=== PATIENT | male | born 1970 | race Caucasian/White ===

== ENCOUNTER 2016-12-04 04:00 | Inpatient (IN) | payer OTHER ==
--- NOTE | ~2016-12-04 | PN ---
Unit #: [id number] #: [id number] Patient: LAWRENCE MICHELLE [id number] [facility] [address] [place] [address] [id number] I MR#: [id number] NAME: LAWRENCE MICHELLE. ROOM: 63 Age: 46 Sex: M Admission Date: 12/04/2016 : 1970 Attending Physician: Keven Pereira M.D. Admitting Physician: Keven Pereira M.D. Primary Care Physician: Primary Care Physician Abi NEGRON NOTES DATE 12/07/2016 DISCUSSION Mr. Michelle is a 46-year-old white male who was seen today and chart was reviewed and case was discussed with the staff. He remains anxious, withdrawn, depressed and rather seclusive to himself. Meanwhile, he has been cooperative with treatment recommendations and has been taking medications and tolerating them fairly well with no reported side effects. MENTAL STATUS EXAMINATION Middle-aged white male who was casually dressed with fair personal hygiene and appears to be in no acute distress or discomfort. He was awake and alert on interaction with intact orientation. His mood was anxious with congruent affect. He denies any suicidal or homicidal ideation. His insight and judgement remains slightly impaired. TREATMENT PLAN 1. Will continue on his current medications and treatment protocol. Will monitor his response to the medications and make further adjustments as needed. 2. Will continue to follow up. Dictated by... Keven Pereira M.D. IAA/taz TD: 12/07/2016 17:23 JOB #: [id number] Unit #: [id number] #: [id number] Patient: LAWRENCE MICHELLE ISIDRO PROGRESS NOTES Page 1 of 1 X Keven Pereira MD PROGRESS NOTE
--- NOTE | ~2016-12-04 | HP ---
Unit #: [id number] #: [id number] Patient: LAWRENCE LOPEZ [id number] [place] [address] [id number] I MR#: [id number] NAME: LAWRENCE LOPEZ. ROOM: 63 Age: 46 Sex: M Admission Date: 12/04/2016 : 1970 Attending Physician: Keven Pereira M.D. Admitting Physician: Keven Pereira M.D. Primary Care Physician: Primary Care Physician No HISTORY AND PHYSICAL HISTORY OF PRESENT ILLNESS Lawrence is a 46 year old, admitted to [address] [place] [address], because of his polysubstance abuse which includes methamphetamine and heroin. PAST MEDICAL HISTORY 1. Long history of poly-illicit substance abuse to include snorting heroin and methamphetamine. 2. Morbid obesity. 3. Diabetes mellitus. 4. History of congestive heart failure. 5. High blood pressure. 6. History of DVT. PAST SURGICAL HISTORY I and D of an abscess. ALLERGIES No known drug allergies. SOCIAL HISTORY He smokes less than one pack per day. He drinks alcohol rarely and admits to a history of illicit substance abuse to include snorting methamphetamine and heroin. He denies any IV drugs. FAMILY HISTORY Medically noncontributory. REVIEW OF SYSTEMS CONSTITUTIONAL: No fever or chills. HEENT: Denies any sore throat, ear pain or runny nose. CARDIOVASCULAR: Denies chest pain, irregular heart rhythm or palpitations. CHEST: Denies shortness of breath or cough. No hemoptysis. GASTROINTESTINAL: Denies nausea, vomiting, diarrhea or chronic constipation. ENDOCRINE: Denies history of increased thirst or urination. No recent significant weight loss or gain. GENITOURINARY: Denies dysuria, frequency, or hematuria. SKIN: Denies any rashes. HEMATOLOGIC: Denies history of increased bleeding or bruising. MUSCULOSKELETAL: Denies any hot, swollen joints. No generalized muscle pain. NEUROLOGIC: Denies problems with vision or speech. No frequent, severe headaches. No numbness, tingling or weakness in any extremities. Denies Unit #: [id number] #: [id number] Patient: LAWRENCE LOPEZ loss of bladder or bowel control. CURRENT MEDICATIONS 1. Detox protocol 2. NovoLog per sliding scale 3. Xarelto 20 mg daily 4. Zestril 40 mg daily 5. Celexa 20 mg daily 6. Nicotine patch 14 mg daily PHYSICAL EXAMINATION GENERAL: Alert, obese, no apparent distress. VITAL SIGNS: Blood pressure 182/116, heart rate 100, respirations 16, and temperature 98.6. WEIGHT: 275 pounds. HEIGHT: 6 feet 0 inches. SKIN: Warm and dry without rash or lesion. HEENT: Normocephalic. TMs not viewed. Oral and nasal passages clear. Conjunctivae clear. PERRLA. EOMs intact. NECK: Supple without lymphadenopathy or thyromegaly. HEART: Regular rate and rhythm without murmur. LUNGS: Clear. ABDOMEN: Soft, nontender. : Not done. EXTREMITIES: No evidence of cyanosis or clubbing. He has trace to 1+ edema bilateral lower extremities. Moves all without focal deficit. NEUROLOGICAL: Grossly within normal limits. Cranial Nerves: II: Visual kaur are intact. III, IV AND : Extraocular movements are intact. Pupils are equal, round and reactive to light. V: Facial sensation is grossly normal. VII: Facial movements and expression are normal. VIII: Auditory acuity grossly intact. IX, X: Uvula is midline. Phonation is normal. XI: Patient shrugs shoulders and turns head normally. XII: Tongue protrudes in the midline. Sensory and Motor Function: Sensory and motor sensation is grossly normal. Motor: moves all extremities well. Coordination: Gait is normal. Deep Tendon Reflexes: Intact. IMPRESSION Psychiatric admission. RECOMMENDATIONS Psychiatric, per psychiatrist. MEDICAL 1. I see no contraindications to participating in facility's activities. 2. Detox per protocol. 3. Continue Xarelto and Zestril. Add Relafen 500 mg one p.o. b.i.d. for pain MEDICAL PROGNOSIS Good. MEDICAL CONDITION Stable. Dictated by... Unit #: [id number] #: [id number] Patient: LAWRENCE LOPEZ Len Hdz P.A.-C. for Adryan Tay/sugar TD: 12/04/2016 15:07 JOB #: [id number] HISTORY AND PHYSICAL Page 1 of 1 X Amita Hdz X HISTORY AND PHYSICAL
--- NOTE | ~2016-12-04 | CR63 ---
[facility] A Service of [facility] RADIOLOGY TEXT RESULTS PATIENT: LAWRENCE LOPEZ LOCATION: P2L P263-2 : [birth year] UNIT #: [id number] AGE: [address]: Keven Pereira MD SEX: M ORDER DR: [id number] [facility] [address] [facility]. [place], [place] [address] [id number] I MR#: [id number] Acc #: [id number] NAME: LAWRENCE LOPEZ : 1970 SEX: M STUDY DATE/TIME: 12/06/2016 19:06 UNIT: P2 ROOM: [facility] STUDY DESCRIPTION: CR Chest 2 View Attending Physician: Keven Pereira M.D. Ordering Physician: Amita Hdz P.A.-C. Primary Care Physician: No Primary Care Physician MEDICAL IMAGING REPORT This report is preliminary unless electronic signature is present EXAM PA and lateral chest. HISTORY Shortness of air for 3 weeks. FINDINGS Two views of the chest demonstrate mild cardiac enlargement and vascular congestion and mild bilateral perihilar edema or atelectasis. Additional mild interstitial infiltrate or atelectasis or edema in the right mid and lower lung. Small calcified right hilar nodes and calcified granuloma right midlung. IMPRESSION Cardiac enlargement with mild vascular congestion and mild bilateral perihilar infiltrates or edema. Consider mild congestive heart failure. Additional mild interstitial infiltrates right mid and lower lung. No pleural effusions. Dictated by... Roland Martinez M.D. THIS IS AN ELECTRONICALLY VERIFIED REPORT Roland Martinez M.D. at 12/07/2016 11:23 PM AKI/imelda TD: 12/06/2016 22:40 JOB #: [id number] MEDICAL IMAGING REPORT Page 1 of 1 COPY
--- NOTE | ~2016-12-04 | PN ---
Unit #: [id number] #: [id number] Patient: LAWRENCE MICHELLE [id number] [facility] [address] [place] [address] [id number] I MR#: [id number] NAME: LAWRENCE MICHELLE. ROOM: [facility] Age: 46 Sex: M Admission Date: 12/04/2016 : 1970 Attending Physician: Keven Pereira M.D. Admitting Physician: Keven Pereira M.D. Primary Care Physician: Primary Care Physician Abi NEGRON NOTES DATE 12/06/2016 DISCUSSION Mr. Michelle is a 46-year-old white male with mood disorder and substance abuse who was seen today and chart was reviewed and case was discussed with the staff. He reports not feeling good and has been not showing much improvement in his mood and functioning and has been anxious, withdrawn, unkempt, disheveled and seclusive to himself and describes himself to be in distress and discomfort and significant dysphoric mood with feelings of hopelessness and helplessness but has not shown any agitation or aggression. He has been taking medications and tolerating them fairly well with no reported side effects. MENTAL STATUS EXAMINATION Middle-aged white male who was casually dressed with fair personal hygiene and appears to be in no acute distress or discomfort. He was awake and alert with impaired attention and concentration. His mood was anxious with congruent affect. His speech is slow and tangential. His thought processes were disorganized with some looseness of associations and flight of ideas. His insight and judgement remains significantly impaired. TREATMENT PLAN 1. Will continue on his current medications and treatment protocol. Will monitor his response to medications and make further adjustments as needed. 2. Will continue to follow up. Dictated by... Adryan Johnson/taz TD: 12/06/2016 16:52 JOB #: [id number] Unit #: [id number] #: [id number] Patient: LAWRENCE MICHELLE ISIDRO PROGRESS NOTES Page 1 of 1 X Keven Pereira MD X PROGRESS NOTE
--- NOTE | ~2016-12-04 | PN ---
Unit #: [id number] #: [id number] Patient: LAWRENCE LOPEZ [id number] [facility] [address] [place] [address] [id number] I MR#: [id number] NAME: LAWRENCE LOPEZ. ROOM: [facility] Age: 46 Sex: M Admission Date: 12/04/2016 : 1970 Attending Physician: Keven Pereira M.D. Admitting Physician: Keven Pereira M.D. Primary Care Physician: Primary Care Physician Abi FELIX PROGRESS NOTES DATE 12/08/2016 DISCUSSION Mr. Catalan is a 46-year-old, white male who was seen today and chart was reviewed and case was discussed with the staff. He has been anxious, withdrawn though has not shown any agitation, irritability and has been cooperative with treatment recommendations. He has been taking the medication and tolerating them fairly well with no reported side effects. MENTAL STATUS EXAM Middle-aged white male who was casually dressed with fair personal hygiene, appears to be in no acute distress or discomfort. He was awake and alert with intact orientation. His mood was anxious with congruent affect. He denies any suicidal or homicidal ideation. His insight and judgement remains slightly impaired. TREATMENT PLAN 1. We will continue him on his current treatment protocol. We will monitor his response to the medication and make further adjustments as needed. We will request medical consultation as the patient has been complaining of (1) . 2. We will continue to follow up. Dictated by... Adryan Johnson/lolly TD: 12/09/2016 03:47 JOB #: [id number] Unit #: [id number] #: [id number] Patient: LAWRENCE LOPEZ ISIDRO PROGRESS NOTES Page 1 of 1 X Keven Pereira MD PROGRESS NOTE
--- NOTE | ~2016-12-04 | PA ---
Unit #: [id number] #: [id number] Patient: LAWRENCE MICHELLE [id number] [facility] [address] [place] [address] [id number] I MR#: [id number] NAME: LAWRENCE MICHELLE ROOM: P263 Age: 46 Sex: M Admission Date: 12/04/2016 : 1970 Date of Assessment: 12/04/2016 Attending Physician: Keven Pereira M.D. Admitting Physician: Keven Pereira M.D. Primary Care Physician: Primary Care Physician No PSYCHIATRIC ASSESSMENT DATE OF SERVICE 12/04/2016. IDENTIFYING DATA Mr. Michelle is a 46-year-old single white male, who is a resident of [place], [place], and is known to us from previous encounter, was self-referred to the hospital on a voluntary basis. CHIEF COMPLAINT "I met the crucial point." HISTORY OF PRESENT ILLNESS Mr. Mihcelle is a 46-year-old white male with history of mood disorder and substance abuse, who was brought to the hospital, stating that he has been on suicidal ideations with plan to jump off the building and is putting headphones on and walking off the ledge and reports history of suicidal ideation for approximately 1 year, reports daily use of heroin and methamphetamine with last use of both substances in 12/02/2016 and does report increasing depression, anxiety, irritability, feelings of hopelessness and helplessness, and suicidal ideations with intent and plan and as such, recommendation for inpatient level of care for safety and stabilization was made. The patient was transferred to us. SUBSTANCE ABUSE HISTORY The patient reports history of opioid and methamphetamine abuse and reports that he has been using 0.5 to 1 g of heroin a day and reports both of them to be his drug of choice. PAST PSYCHIATRIC HISTORY The patient has a history of multiple inpatient psychiatric and chemical dependency treatments including being at the [facility], [facility], [facility], and review of the medical records indicate that currently he is not active in treatment program, is not seeing a psychiatrist, not taking any psychotropic medications. PAST MEDICAL HISTORY The patient's medical history is significant for diabetes mellitus, congestive heart failure, hypertension. ALLERGIES No known medication allergies. PERSONAL AND SOCIAL HISTORY Unit #: [id number] #: [id number] Patient: LAWRENCE MICHELLE A 46-year-old white male, who reports that he is single, unemployed, and lives by himself and has poor social support system. MENTAL STATUS EXAMINATION Middle-aged white male, who was casually dressed with fair personal hygiene, appears to be in no acute distress or discomfort. He was awake and alert on interaction with intact orientation to time, place, and person. His mood was anxious and depressed with a congruent affect. His speech was slow and restricted in content. His thought processes were disorganized with some looseness of associations and suicidal ideations. His insight and judgment remain significantly impaired. DIAGNOSTIC IMPRESSION Psychiatric: Major depressive disorder, recurrent, moderate, without psychotic features; opioid dependence, moderate and acute withdrawals; methamphetamine dependence, moderate. Medical: Hypertension, congestive heart failure, diabetes mellitus. Stressors: Moderate psychosocial stressors. TREATMENT PLAN 1. The patient has presented with history of mood disorder and substance abuse and has been decompensating and will need inpatient hospitalization for safety and stabilization. We will start him back on his home medications. We will adjust the medications and monitor response. 2. Supportive therapy was provided to the patient. 3. Safe, structured, and nourishing environment will be provided. ESTIMATED LENGTH OF STAY 5 to 7 days. ABILITY TO HELP SELF Limited. WILLINGNESS TO HELP SELF The patient appears to be willing to help self. STRENGTHS 1. Communicative. 2. Cooperative. PROBLEMS 1. Chronic dysphoric symptoms. 2. Poor social support system. DISCHARGE CRITERIA This will be contingent upon the patient's ability to show resolution of his depression and anxiety and his ability to stay safe to himself, particularly after discharge from the hospital. Dictated by... Adryan Johnson/singh TD: 12/04/2016 12:42 JOB #: [id number] Unit #: [id number] #: [id number] Patient: LAWRENCE MICHELLE PSYCHIATRIC ASSESSMENT Page 1 of 1 X Keven Pereira MD PSYCHIATRIC ASSESSMENT
--- NOTE | ~2016-12-04 | PN ---
Unit #: [id number] #: [id number] Patient: LAWRENCE MICHELLE [id number] [facility] [address] [place] [address] [id number] MR#: [id number] NAME: LAWRENCE MICHELLE. ROOM: [facility] Age: 46 Sex: M Admission Date: 12/04/2016 : 1970 Attending Physician: Keven Pereira M.D. Admitting Physician: Keven Pereira M.D. Primary Care Physician: Primary Care Physician Abi FELIX PROGRESS NOTES DATE OF SERVICE 12/09/2016 DISCUSSION Mr. Michelle is a 46-year-old white male who was seen today. Chart was reviewed and case was discussed with the staff. He has been anxious, withdrawn, and rather seclusive to himself. Meanwhile, he has been cooperative with the treatment recommendations and has been showing some improvement in his depressive symptoms. MENTAL STATUS EXAMINATION Middle-aged white male who is casually dressed with fair personal hygiene and appears to be in no acute distress or discomfort. The patient was awake and alert on interaction with intact orientation. His mood is anxious and depressed with congruent affect. Speech is slow and goal-directed. He denies any suicidal or homicidal ideations. His insight and judgment remain slightly impaired. TREATMENT PLAN 1. We will continue him on his current treatment protocol. We will monitor his response to the medications and make further adjustments as needed. 2. We will continue to follow up. Dictated by... Keven Pereira M.D. IAA/bzg TD: 12/10/2016 11:46 JOB #: [id number] Unit #: [id number] #: [id number] Patient: LAWRENCE MICHELLE PROGRESS NOTES Page 1 of 1 X Keven Pereira MD PROGRESS NOTE
--- NOTE | ~2016-12-04 | CO ---
Unit #: [id number] #: [id number] Patient: LAWRENCE LOPEZ [id number] [place] [address] [id number] I MR#: [id number] NAME: LAWRENCE LOPEZ. ROOM: [facility] Age: 46 Sex: M Admission Date: 12/04/2016 : 1970 Attending Physician: Keven Pereira M.D. Primary Care Physician: Primary Care Physician No Consultation Date: 12/06/2016 CONSULTATION REPORT SUBJECTIVE Lawrence is a 46-year-old with history of COPD. He has complained of some shortness of air and pulse ox have been running 89 to 92. We have been asked to assess and treat. He denies any chest pain, irregular heart beats, or increased edema in his lower extremities. OBJECTIVE GENERAL: Alert, morbidly obese, no apparent distress. VITAL SIGNS: Blood pressure 150/82, heart rate 80, respirations 16, temperature 98.6. CARDIOVASCULAR: Rate and rhythm is regular. No S3. CHEST: Decreased breath sounds, but clear. ABDOMEN: Morbidly obese, soft, nontender. EXTREMITIES: Trace edema bilaterally, lower extremities. ASSESSMENT Chronic obstructive pulmonary disease. PLAN Albuterol mini-nebs q.4 hours while awake. Nursing staff is to let us know if anything else develops. Dictated by... Amita Hdz P.A.-C. for Adryan Tay/singh TD: 12/12/2016 01:24 JOB #: [id number] CONSULTATION REPORT Page 1 of 1 X Amita Hdz X CONSULTATION REPORT
--- NOTE | ~2016-12-04 | PN ---
Unit #: [id number] #: [id number] Patient: LAWRENCE MICHELLE [id number] [facility] [address] [place] [address] [id number] I MR#: [id number] NAME: LAWRENCE MICHELLE. ROOM: [facility] Age: 46 Sex: M Admission Date: 12/04/2016 : 1970 Attending Physician: Keven Pereira M.D. Admitting Physician: Keven Pereira M.D. Primary Care Physician: Primary Care Physician Abi NEGRON NOTES DATE 12/05/2016 DISCUSSION Mr. Michelle is a 46-year-old white male who was seen today and chart was reviewed and case was discussed with the staff. He has been anxious, withdrawn and seclusive to himself and does appear to be in distress and discomfort complaining of increasing anxiety and difficulty breathing and thus p.r.n. inhaler was given. Meanwhile, he has been taking medications and tolerating them fairly well with no reported side effects. MENTAL STATUS EXAMINATION Middle-aged white male who was casually dressed with fair personal hygiene and appears to be in no acute distress or discomfort. He was awake and alert with intact orientation. His mood was anxious with congruent affect. He denies any suicidal or homicidal ideation. His insight and judgement remains slightly impaired. TREATMENT PLAN 1. Will continue on his current medications and treatment protocol and will monitor his response to medications and make further adjustments as needed. 2. Will continue to follow up. Dictated by... Adryan Johnson/taz TD: 12/05/2016 21:18 JOB #: [id number] Unit #: [id number] #: [id number] Patient: LAWRENCE MICHELLE ISIDRO PROGRESS NOTES Page 1 of 1 X Keven Pereira MD PROGRESS NOTE
--- NOTE | ~2016-12-04 | DS ---
Unit #: [id number] #: [id number] [facility] [id number] [facility] [address] [place] [address] [id number] I MR#: [id number] NAME: LAWRENCE MICHELLE ROOM: [facility] Age: 46 Sex: M Admission Date: 12/04/2016 : 1970 Discharge Date: 12/11/2016 Attending Physician: Keven Pereira M.D. Primary Care Physician: Primary Care Physician No DISCHARGE SUMMARY IDENTIFYING DATA Mr. Michelle is a 46-year-old single white male, who is a resident of [place], [place], and is known to us from previous encounter, was self-referred to the hospital. DISCHARGE DIAGNOSES Psychiatric: Major depressive disorder, recurrent, moderate, without psychotic features; opioid dependence, moderate and acute withdrawals; methamphetamine dependence, moderate. Medical: Hypertension, congestive heart failure, diabetes mellitus. Stressors: Moderate psychosocial stressors. HISTORY OF PRESENT ILLNESS Please see initial psychiatric evaluation for details. PAST PSYCHIATRIC HISTORY Please see initial psychiatric evaluation for details. PAST MEDICAL HISTORY Please see initial psychiatric evaluation for details. HOSPITAL COURSE The patient was admitted to the adult psychiatric unit at [facility] and was oriented to the hospital environment. Routine p.r.n. medications were initiated, and he was started back on his home medications and medications were adjusted as the patient was exhibiting significant anxiety and depression and was also having some medical complications particularly with breathing and medical consultation was requested as well. He was taking the medications regularly and was tolerating them fairly well and was able to show a decent and therapeutic response with improvement in depression and anxiety and was willing to continue treatment on an outpatient basis and as such, it was decided that he will be discharged home and will continue treatment on an outpatient basis. DISCHARGE MEDICATIONS Celexa 20 mg a day for depression, Zestril 40 mg a day for hypertension, Lasix 40 mg a day for hypertension, Proventil inhaler 2 puffs as needed for asthma. DISCHARGE CONDITION Stable. PROGNOSIS Unit #: [id number] #: [id number] Patient: LAWRENCE MICHELLE Fair. Dictated by... Adryan Johnson/singh TD: 12/12/2016 00:29 JOB #: [id number] DISCHARGE SUMMARY Page 1 of 1 X Keven Pereira MD DISCHARGE SUMMARY
--- NOTE | ~2016-12-04 | PN ---
Unit #: [id number] #: [id number] Patient: LAWRENCE MICHELLE [id number] [facility] [address] [place] [address] [id number] I MR#: [id number] NAME: LAWRENCE MICHELLE. ROOM: [facility] Age: 46 Sex: M Admission Date: 12/04/2016 : 1970 Attending Physician: Keven Pereira M.D. Admitting Physician: Keven Pereira M.D. Primary Care Physician: Primary Care Physician Abi FELIX PROGRESS NOTES DATE 12/10/2016 DISCUSSION Mr. Michelle is a 46-year-old, white male who was seen today and chart was reviewed and case was discussed with the staff. He has been anxious, withdrawn though has not shown any agitation, irritability and has been rather calm and cooperative with the treatment recommendations. He has been taking the medication and tolerating them fairly well with no reported side effects. MENTAL STATUS EXAM Middle-aged white male who was casually dressed with fair personal hygiene, appears to be in no acute distress or discomfort. He was awake and alert on interaction with intact orientation. His mood was anxious with congruent affect. He denies any suicidal or homicidal ideation. His insight and judgement remains slightly impaired. TREATMENT PLAN 1. We will continue him on his current medications and treatment protocol. We will monitor his response to the medication and make further adjustments as needed. 2. We will continue to follow up. Dictated by... Adryan Johnson/lolly TD: 12/11/2016 04:57 JOB #: [id number] Unit #: [id number] #: [id number] Patient: LAWRENCE MICHELLE ISIDRO PROGRESS NOTES Page 1 of 1 X Keven Pereira MD PROGRESS NOTE
[2016-12-05 09:52] LABS: BASOPHIL% 0.2 % (0-2.5); EOSINOPHIL# 0.2 X10e3 (0-0.7); EOSINOPHIL% 1.5 % (0.0-7.0); HEMATOCRIT 40.8 % (38.0-50.0); HEMOGLOBIN 13.3 gm/dL (13.0-16.0); LYMPHOCYTE# 2.4 X10e3 (1.0-3.5); LYMPHOCYTE% 18.9 % (17.0-45.0); MEAN CELL VOLUME 82.9 FL (83-96); MEAN CORPUSCULAR HGB CONC 32.5 g/dL (30-36); MEAN PLATELET VOLUME 8.8 FL (6.5-11.5); MONOCYTE# 0.8 X10e3 (0-1.0); MONOCYTE% 6.1 % (3.0-12.0); NEUTROPHIL# 9.3 X10e3 (1.5-7.1); NEUTROPHIL% 73.3 % (40-75); PLATELET COUNT 277 X10e3 (140-420); RED BLOOD COUNT 4.92 X10e (3.90-5.60); RED CELL DISTRIBUTION WIDTH 15.6 % (11.0-15.5); WHITE BLOOD COUNT 12.7 X10e3 (4.0-10.5)
[2016-12-05 09:55] LABS: DIFF IND NO
[2016-12-05 10:02] LABS: ALBUMIN SERUM 2.9 g/dL (3.5-5.0); BILIRUBIN,TOTAL 0.5 mg/dL (0.2-2.0); BUN/CREATININE RATIO 13.33; CALCIUM SERUM 8.3 mg/dL (8.4-10.2); CREATININE SERUM 0.9 mg/dL (0.6-1.4); GLOM FILT RATE Estimated 101.4 mL/min (>60); PROTEIN TOTAL SERUM 6.2 g/dL (6.0-8.3)
[2016-12-08 11:43] LABS: CALCIUM SERUM 8.2 mg/dL (8.4-10.2); CREATININE SERUM 0.8 mg/dL (0.6-1.4); GLOM FILT RATE Estimated 106.4 mL/min (>60)
[2016-12-09 11:50] LABS: URINE APPEARANCE CLEAR; URINE BILIRUBIN NEG (NEG); URINE BLOOD NEG (NEG); URINE COLOR YELLOW; URINE GLUCOSE NEG (NEG); URINE KETONE NEG (NEG); URINE LEUKOCYTE ESTERASE NEG (NEG); URINE NITRATE NEG (NEG); URINE PROTEIN NEG (NEG); URINE SPECIFIC GRAVITY 1.012 (1.003-1.035)
[2016-12-09 12:21] LABS: AMPHETAMINE NEG (NEG); BARBITURATES NEG (NEG); BENZODIAZEPINES NEG (NEG); COCAINE NEG (NEG); MARIJUANA NEG (NEG); OPIATES NEG (NEG); TRICYCLIC ANTIDEPRESSANTS NEG (NEG); U METHADONE NEG (NEG)
== END 2016-12-11 13:15 | disposition home or self-care (01) | DRG 885 ==
LOC: P2L 06:30
PROVIDERS: Psychiatry & Neurology Psychiatry
PROC: HZ2ZZZZ Detoxification Services for Substance Abuse Treatment (ICD-10-PCS; principal; 2016-12-04)
DX: F33.1 Major depressive disorder, recurrent, moderate (principal); I11.0 Hypertensive heart disease with heart failure; I50.9 Heart failure, unspecified; F11.23 Opioid dependence with withdrawal; F15.20 Other stimulant dependence, uncomplicated; E66.01 Morbid (severe) obesity due to excess calories; E11.9 Type 2 diabetes mellitus without complications; I10 Essential (primary) hypertension; F17.210 Nicotine dependence, cigarettes, uncomplicated
CPT/HCPCS: 71020; 80048; 80053; 80307; 81003; 82947; 85025; 86592